=== PATIENT | female | born 1980 | race African-American/Black ===

== ENCOUNTER 2025-10-09 20:26 | Emergency (ER) | payer OTHER ==
[~2025-10-09] VITALS: Ht 167.6 cm; Wt 66.7 kg
[2025-10-09 21:04] LABS: PLATELET COUNT (AUTO) 180 K/uL (179-408); RED BLOOD CELL COUNT(AUTO) 4.53 MIL/uL (3.63-4.92); RED CELL DISTRIBUTION WIDTH 14.3 % (12.3-17.7); WHITE BLOOD COUNT (AUTO) 3.3 K/uL (3.8-11.8)
[2025-10-09] MEDS ORDERED: ONDANSETRON 4 MG/2 ML VIAL ONE (21:08)
[2025-10-09 21:11] LABS: CREATININE 0.8 mg/dL (0.6-1.3); SODIUM SERUM 142.0 mmol/L (136-145); UREA NITROGEN, BLOOD 8.0 mg/dL (7-18)
[2025-10-09 21:16] LABS: ASPARTATE AMINOTRANSFERASE 18.0 U/L (15-37); TOTAL PROTEIN, SERUM 7.4 g/dL (6.4-8.2)
[2025-10-09] MEDS: IV NORMAL SALINE 1000 ML BAG IV ONE (21:35)
[2025-10-09] MEDS: ONDANSETRON 4 MG/2 ML VIAL IV ONE (21:35)
[2025-10-09 21:45] VITALS: BP 116/71
[2025-10-09 22:19] LABS: IRON, SERUM 56 ug/dL (50-175)
[2025-10-09 22:32] VITALS: BP 120/73; O2SAT 99
== END 2025-10-09 22:37 | disposition home or self-care (01) ==
LOC: ER 20:26
DX: R55 Syncope and collapse (principal); R19.7 Diarrhea, unspecified; Z86.018 Personal history of other benign neoplasm; Z86.2 Personal history of diseases of the blood and blood-forming organs and certain disorders involving the immune mechanism
CPT/HCPCS: 36415; 70110; 83550; 85025; 85730; A4606; A4663; J2405; J7040